=== PATIENT | female | born 1995 | race Caucasian/White ===

== ENCOUNTER 2019-08-30 17:13 | Emergency (ER) | payer OTHER ==
[2019-08-30 18:11] LABS: Absolute Lymphocytes (CBC) 2.4 K/uL (0.7-4.9); Basophils % 0.3 % (0-1.3); Hematocrit 38.2 % (36.0-45.0); Lymphocytes % 21.7 % (15.3-44.8); MPV 8.6 fL (7.6-11.3); RBC Red Blood Cell Count 4.73 M/uL (3.86-4.86)
[2019-08-30] MEDS ORDERED: NA CHLORIDE 0.9% 1,000 ML ONE (18:11)
[2019-08-30 18:24] LABS: Urine Bacteria 20-50 /HPF (<20); Urine RBC <5 /HPF (NONE SEEN)
[2019-08-30 18:25] LABS: Urine Culture Reflex Order REFLEXED
[2019-08-30 18:48] LABS: BUN Blood Urea Nitrogen 8 mg/dL (7-18); Bicarbonate 23 mmol/L (21-32); Glucose Level 119 mg/dL (74-106); HCG, Quantitative 165580 mIU/mL (1-3); Potassium 3.8 mmol/L (3.5-5.1); Sodium Level 136 mmol/L (136-145)
--- NOTE | 2019-08-30 19:30 | EDPHYS ---
Physician Documentation [facility] Name: Michelle Perez Age: 23 yrs Sex: Female : 1995 Arrival Date: 08/30/2019 Time: 17:17 Bed 6 Private MD: ED Physician Delroy Chin HPI: 08/29 17:43 This 23 yrs old Female presents to ER via Ambulatory with complaints of jmm Vaginal Bleeding, + Preg <12wks. 17:43 The patient presents to the emergency department with vaginal bleeding, that is jmm moderate. The estimated gestational age is 8 weeks. This is a 23 year old female with a history of depression that presents to the ED with complaints of pelvic pain beginning a week ago with vaginal bleeding beginning yesterday. Denies fever, denies vomiting. . 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 - Social history:: Smoking status: Patient denies any tobacco usage or history of. ROS: 17:43 Constitutional: Negative for fever, chills, and weight loss, Cardiovascular: Negative jmm for chest pain, palpitations, and edema, Respiratory: Negative for shortness of breath, cough, wheezing, and pleuritic chest pain. 17:43 : Positive for vaginal bleeding. 17:43 All other systems are negative. Exam: 17:43 Constitutional: This is a well developed, well nourished patient who is awake, alert, jmm and in no acute distress. Head/Face: atraumatic. Eyes: EOMI, no conjunctival erythema appreciated ENT: Moist Mucus Membranes Neck: Trachea midline, Supple Chest/axilla: Normal chest wall appearance and motion. Cardiovascular: Regular rate and rhythm. No edema appreciated Respiratory: Normal respirations, no respiratory distress appreciated Abdomen/GI: Non distended, soft Back: Normal ROM Skin: General appearance color normal MS/ Extremity: Moves all extremities, no obvious deformities appreciated, no edema noted to the lower extremities Neuro: Awake and alert, normal gait Psych: Behavior is normal, Mood is normal, Patient is cooperative and pleasant Vital Signs: 17:34 BP 119 / 84; Pulse 104; Resp 17; Temp 97.1; Pulse Ox 100% ; Weight 81.65 kg; Height 5 7 ft. 6 in. (167.64 cm); Pain 6/10; 18:40 BP 102 / 69; Pulse 100; Resp 17 S; Pulse Ox 100% on R/A; ca1 19:37 BP 110 / 65; Pulse 98; Resp 18; Temp 97.5; Pulse Ox 100% on R/A; mg2 17:34 Body Mass Index 29.05 (81.65 kg, 167.64 cm) jl7 MDM: 17:43 Patient medically screened. [facility] 19:27 Data reviewed: vital signs, nurses notes. Counseling: I had a detailed discussion with dominik the patient and/or guardian regarding: the historical points, exam findings, and any diagnostic results supporting the discharge/admit diagnosis, lab results, radiology results, the need for outpatient follow up, to return to the emergency department if symptoms worsen or persist or if there are any questions or concerns that arise at home. Admission orders: after a detailed discussion of the patient's condition and case, the admit orders are written by me. ED course: US reveals IUP for subchorionic bleed. UA concerning for UTI. Patient is advised to perform pelvic rest and follow up with obgyn for further evaluation. Patient understood and agrees with the plan of care. . 08/29 17:44 Order name: Quantitative Hcg; Complete Time: 19:14 [facility] 08/29 17:44 Order name: Abo/rh Typing; Complete Time: 19:14 [facility] 08/29 17:44 Order name: Basic Metabolic Panel; Complete Time: 19:14 [facility] 08/29 17:44 Order name: CBC with Diff; Complete Time: 18:36 [facility] 08/29 17:45 Order name: Urine Microscopic Only; Complete Time: 18:36 [facility] 08/29 17:50 Order name: Urine Dipstick--Ancillary (enter results) [facility] 08/29 17:44 Order name: IV Saline Lock; Complete Time: 17:58 [facility] 08/29 17:50 Order name: Urine --Ancillary (enter results) [facility] 08/29 18:27 Order name: Urine Culture [facility] 08/29 19:07 Order name: Matter Eval Tm 1 [facility] 08/29 17:44 Order name: Labs collected and sent; Complete Time: 17:59 [facility] 08/29 17:44 Order name: NPO; Complete Time: 17:46 [facility] 08/29 17:44 Order name: Urine Dipstick-Ancillary (obtain specimen); Complete Time: 17:46 [facility] Administered Medications: 18:07 Drug: NS 0.9% 1000 ml Route: IV; Rate: 1 bolus; Site: right antecubital; ca1 18:59 Follow up: Response: No adverse reaction; IV Status: Completed infusion; IV Intake: jl7 1000ml Disposition: 08/30 07:26 Co-signature as Attending Physician, Delroy Chin MD. rn Disposition: 08/30/19 19:29 Discharged to Home. Impression: Threatened , Urinary tract infection, site not specified. - Condition is Stable. - Discharge Instructions: Threatened Miscarriage, and Urinary Tract Infection, Pelvic Rest. - Prescriptions for Cephalexin 500 mg Oral Capsule - take 1 capsule by ORAL route every 12 hours for 10 days; 20 capsule. - Medication Reconciliation Form, Thank You Letter, Antibiotic Education, Prescription Opioid Use form. - Follow up: Private Physician; When: 2 - 3 days; Reason: Recheck today's complaints, Continuance of care, Re-evaluation by your physician. Signatures: Dispatcher [employer] [facility] Ronnie Elizabeth PA PA Delroy Johnson MD MD rn Leal, Jahala, RN RN jl7 Lavon Hemphill RN RN mg2 Puja Dumont RN RN ca1 Corrections: (The following items were deleted from the chart) 08/29 17:59 17:44 1st Trimest Single 1st Fetus+US.RAD.BRZ ordered. [facility] 19:07 18:04 Pelvis Complete+US.RAD.BRZ ordered. [facility] 19:38 19:29 08/30/2019 19:29 Discharged to Home. Impression: Threatened ; Urinary mg2 tract infection, site not specified. Condition is Stable. Forms are Medication Reconciliation Form, Thank You Letter, Antibiotic Education, Prescription Opioid Use. Follow up: Private Physician; When: 2 - 3 days; Reason: Recheck today's complaints, Continuance of care, Re-evaluation by your physician. dominik
--- NOTE | 2019-08-30 19:30 | ER ---
Nurse's Notes [facility] Name: Michelle Perez Age: 23 yrs Sex: Female : 1995 Arrival Date: 08/30/2019 Time: 17:17 Bed 6 Private MD: Diagnosis: Threatened ;Urinary tract infection, site not specified Presentation: 08/29 17:34 Chief complaint: Patient states: lower abdominal pain x 1 week, was bilateral lower jl7 abdominal pain and now the pain is off to the left. Coronavirus screen: Proceed with normal triage. Patient denies a cough. Patient denies shortness of breath or difficulty breathing. Patient denies measured and/or subjective temperature greater than 100.4F prior to today's visit. Patient denies travel on a cruise ship or to a country the [facility] currently lists as an affected area. Patient denies contact with known and/or suspected case of COVID-19. Ebola Screen: No symptoms or risks identified at this time. Initial Sepsis Screen: Does the patient meet any 2 criteria? No. Patient's initial sepsis screen is negative. Does the patient have a suspected source of infection? No. Patient's initial sepsis screen is negative. Risk Assessment: Do you want to hurt yourself or someone else? Patient reports no desire to harm self or others. Onset of symptoms was August 23, 2019. Care prior to arrival: None. 17:34 Method Of Arrival: Ambulatory [facility] 17:34 Acuity: NAVDEEP 3 jl7 Triage Assessment: 17:36 General: Appears in no apparent distress. uncomfortable, Behavior is calm, cooperative, jl7 appropriate for age. Pain: Complains of pain in left lower quadrant Pain currently is 6 out of 10 on a pain scale. Neuro: Level of Consciousness is awake, alert, obeys commands, Oriented to person, place, time, situation. Cardiovascular: Patient's skin is warm and dry. Respiratory: Airway is patent Respiratory effort is even, unlabored, Respiratory pattern is regular, symmetrical. GI: Abdomen is round non-distended. : Reports vaginal bleeding that is brown. Derm: Skin is pink, warm \T\ dry. 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 - Social history:: Smoking status: Patient denies any tobacco usage or history of. Screenin:40 Abuse screen: Denies threats or abuse. Denies injuries from another. Nutritional ca1 screening: No deficits noted. Tuberculosis screening: No symptoms or risk factors identified. Fall Risk IV access (20 points). Assessment: 17:45 General: See triage assessment. jl7 18:38 Reassessment: US at the bedside. ca1 18:39 Reassessment: Patient appears in no apparent distress at this time. Patient and/or ca1 family updated on plan of care and expected duration. Pain level reassessed. Patient is alert, oriented x 3, equal unlabored respirations, skin warm/dry/pink. 19:37 Reassessment: Patient denies pain at this time. Patient states feeling better. mg2 Vital Signs: 17:34 BP 119 / 84; Pulse 104; Resp 17; Temp 97.1; Pulse Ox 100% ; Weight 81.65 kg; Height 5 jl7 ft. 6 in. (167.64 cm); Pain 6/10; 18:40 BP 102 / 69; Pulse 100; Resp 17 S; Pulse Ox 100% on R/A; ca1 19:37 BP 110 / 65; Pulse 98; Resp 18; Temp 97.5; Pulse Ox 100% on R/A; mg2 17:34 Body Mass Index 29.05 (81.65 kg, 167.64 cm) jl7 ED Course: 17:17 Patient arrived in ED. ag5 17:23 Ronda Lara, ROBERT is Primary Nurse. jl7 17:24 Ronnie Elizabeth PA is PHCP. [facility] 17:24 Delroy Chin MD is Attending Physician. [facility] 17:36 Triage completed. jl7 17:36 Patient maintains SpO2 saturation greater than 95% on room air. jp3 17:36 Patient has correct armband on for positive identification. Bed in low position. Call jp3 light in reach. Side rails up X 1. Warm blanket given. Verbal reassurance given. Pulse ox on. NIBP on. 17:36 Arm band placed on right wrist. jl7 17:45 Urine collected: clean catch specimen, clear, maryann colored. jp3 17:58 Initial lab(s) drawn, by me, sent to lab. Inserted saline lock: 20 gauge in right jp3 antecubital area, using aseptic technique. Blood collected. 18:32 Urine Culture Sent. jp3 19:04 Ultrasound completed. Patient tolerated well. Notified [employer] CLERK/PA . sg3 19:08 Matter Eval Tm 1 In Process Unspecified. EDMS 19:37 No provider procedures requiring assistance completed. IV discontinued, intact, mg2 bleeding controlled, No redness/swelling at site. Pressure dressing applied. Administered Medications: 18:07 Drug: NS 0.9% 1000 ml Route: IV; Rate: 1 bolus; Site: right antecubital; ca1 18:59 Follow up: Response: No adverse reaction; IV Status: Completed infusion; IV Intake: jl7 1000ml Intake: 18:59 IV: 1000ml; Total: 1000ml. jl7 Outcome: 19:29 Discharge ordered by MD. emmanuelle 19:37 Discharged to home ambulatory. mg2 19:37 Condition: good 19:37 Discharge instructions given to patient, Instructed on discharge instructions, follow up and referral plans. medication usage, Demonstrated understanding of instructions, follow-up care, medications, Prescriptions given X 1. 19:38 Patient left the ED. mg2 Signatures: Dispatcher [employer] EDMS Ronnie Elizabeth PA PA jmm Leal, Jahala, RN RN jl7 Rebecca Carroll 3 Lavon Hemphill RN RN mg2 Jose Palacios jp3 Puja Dumont RN RN ca1 Alan Silverman ag5
[2019-08-30 19:49] VITALS: O2SAT 100
[2019-08-30 19:52] VITALS: BP 110/65; TEMP 97.5
--- NOTE | 2019-08-30 20:17 | RAD REPORT ---
EXAM DESCRIPTION: US - Matter Eval Tm 1 - 08/30/2019 7:07 pm CLINICAL HISTORY: , vaginal bleeding. Preliminary findings provided at the time of the study. COMPARISON: None. FINDINGS: A single intrauterine gestation is identified. Gestational sac has a normal appearance. He art rate is 157 bpm. An 18 millimeter subchorionic hemorrhage is seen along the inferior margin. This is not significant at this current size. [place]-rump length measurement corresponds to a 7 W 4 D age. SHEILA is 04/13/2020. No left ovarian or adnexal abnormality. Right ovary was obscured by bowel gas. No right adnexal mass. No blood or fluid in the cul de sac. IMPRESSION: Single 7 W 4 D intrauterine gestation. SHEILA is 04/13/2020. Small 18 mm subchorionic hemorrhage along the inferior margin.
[2019-08-30 21:26] LABS: Urine Blood 3+ (NEG); Urine Glucose NEGATIVE (NEG); Urine Protein TRACE (NEG); Urine Specific Gravity >1.030 (1.005-1.030); Urine pH 5.5 (5.0-7.0)
== END 2019-08-30 19:38 | disposition home or self-care (01) ==
LOC: ER 17:13
DX: O20.0 Threatened abortion (principal); O23.41 Unspecified infection of urinary tract in pregnancy, first trimester; O99.341 Other mental disorders complicating pregnancy, first trimester; Z3A.08 8 weeks gestation of pregnancy
CPT/HCPCS: 87088; 85025; 87086; 80048; 36415; 86900; 81025; 86901; 84702; 76801; J7030; 81003; 81015; 96360; 99284

== ENCOUNTER 2020-07-24 11:06 | Emergency (ER) | payer OTHER ==
[2020-07-24] MEDS ORDERED: AZITHROMYCIN 250 MG TAB ONE (14:06)
[2020-07-24] MEDS ORDERED: dexAMETHasone 10 MG/ML VIAL ONE (14:06)
[2020-07-24] MEDS ORDERED: ASPIRIN EC 325 MG TABLET PO ONE (14:07)
[2020-07-24] MEDS ORDERED: ALBUTEROL INHALER 60 PUFF/8 GM IH ONE (14:07)
[2020-07-24] MEDS ORDERED: FAMOTIDINE 20 MG TAB ONE (14:07)
--- NOTE | 2020-07-24 14:17 | ER ---
Nurse's Notes [facility] Name: Michelle Perez Age: 24 yrs Sex: Female : 1995 Arrival Date: 07/24/2020 Time: 11:10 Bed 23 Private MD: Diagnosis: Other viral pneumonia-covid;Cough Presentation: 07/24 11:16 Chief complaint: Patient states: Cough, SOB, chest pain with coughing for 10 days. ll1 Covid positive last week at [facility]. No fevers. Coronavirus screen: Client denies travel out of the [place] in the last 14 days. congestion, cough unrelated to allergies, difficulty breathing, fatigue, headache, muscle pain, nausea, runny nose, shaking with chills, shortness of breath, sore throat, loss of taste or smell, Client presents with at least one sign or symptom that may indicate coronavirus-19. Standard/surgical mask placed on the client. Client reports previous positive COVID test result. Ebola Screen: Patient denies travel to an Ebola-affected area in the 21 days before illness onset. Initial Sepsis Screen: Does the patient meet any 2 criteria? No. Patient's initial sepsis screen is negative. Does the patient have a suspected source of infection? Yes: Productive cough/pneumonia. Risk Assessment: Do you want to hurt yourself or someone else? Patient reports no desire to harm self or others. Onset of symptoms was July 14, 2020. 11:16 Method Of Arrival: Ambulatory 1 11:16 Acuity: NAVDEEP 4 ll1 Historical: - Allergies: 11:16 No Known Allergies; ll1 - PMHx: 11:16 Depression; ll1 - PSHx: 11:16 Tonsillectomy; ll1 - Immunization history:: Flu vaccine is not up to date. - Social history:: Smoking status: Patient denies any tobacco usage or history of. Screenin:22 Abuse screen: Denies threats or abuse. Denies injuries from another. Nutritional ph screening: No deficits noted. Tuberculosis screening: No symptoms or risk factors identified. Fall Risk None identified. Assessment: 14:21 General: Appears in no apparent distress. comfortable, slender, well groomed, Behavior ph is calm, cooperative, appropriate for age. Pain: Complains of pain in back and chest. Neuro: Level of Consciousness is awake, alert, obeys commands, Oriented to person, place, time, situation. Cardiovascular: Capillary refill < 3 seconds in bilateral fingers Patient's skin is warm and dry. Respiratory: Reports shortness of breath at rest cough that is Airway is patent Respiratory effort is even, unlabored, Respiratory pattern is regular, symmetrical. GI: Abdomen is non-distended, Reports nausea, Patient currently denies abdominal pain. Derm: Skin is intact, is healthy with good turgor, Skin is pink, warm \T\ dry. Musculoskeletal: Circulation, motion, and sensation intact. Range of motion: intact in all extremities. Vital Signs: 11:16 BP 126 / 81; Pulse 85; Resp 17; Temp 98.3; Pulse Ox 97% ; Weight 83.91 kg; Height 5 ft. ll1 6 in. (167.64 cm); Pain 6/10; 14:23 BP 118 / 78; Pulse 79; Resp 20; Temp 98.0; Pulse Ox 98% on R/A; ph 11:16 Body Mass Index 29.86 (83.91 kg, 167.64 cm) ll1 ED Course: 11:10 Patient arrived in ED. mr 11:16 Arm band placed on. ll1 11:19 Triage completed. ll1 12:49 Vera Grider, RN is Primary Nurse. ph 12:52 Willy Marquez MD is Attending Physician. dilia 13:49 Chest Pa And Lat (2 Views) XRAY In Process Unspecified. EDMS 14:16 Fernando Joy MD is Referral Physician. dilia 14:22 Patient has correct armband on for positive identification. Bed in low position. Call ph light in reach. Side rails up X 1. Pulse ox on. NIBP on. 14:22 No provider procedures requiring assistance completed. Patient did not have IV access ph during this emergency room visit. Administered Medications: 14:00 Drug: Pepcid 20 mg Route: PO; ph 14:15 Follow up: Response: No adverse reaction ph 14:00 Drug: Decadron 10 mg Route: IM; Site: right deltoid; ph 14:15 Follow up: Response: No adverse reaction ph 14:00 Drug: Zithromax (azithromycin) 500 mg Route: PO; ph 14:15 Follow up: Response: No adverse reaction ph 14:00 Drug: Aspirin 325 mg Route: PO; ph 14:15 Follow up: Response: No adverse reaction ph 14:00 Drug: Albuterol HFA Inhaler 4 puffs Route: Inhalation; ph 14:15 Follow up: Response: No adverse reaction ph Outcome: 14:16 Discharge ordered by . dilia 14:23 Discharged to home ambulatory. ph 14:23 Condition: good 14:23 Discharge instructions given to patient, Instructed on discharge instructions, follow up and referral plans. medication usage, Demonstrated understanding of instructions, follow-up care, medications, Prescriptions given X 5 14:37 Patient left the ED. dm5 Signatures: Dispatcher [employer] EDMS Sandra Mckee RN RN dm5 Willy Marquez MD MD cha Rivera, Vera Carlos RN RN Denis Herndon RN RN 1
--- NOTE | 2020-07-24 14:19 | EDPHYS ---
Physician Documentation [facility] Name: Michelle Perez Age: 24 yrs Sex: Female : 1995 Arrival Date: 07/24/2020 Time: 11:10 Bed 23 Private MD: ED Physician Willy Marquez HPI: 07/24 13:30 This 24 yrs old Female presents to ER via Ambulatory with complaints of Cough dilia - covid +. 13:30 The patient or guardian reports cough, difficulty breathing, flu symptoms, arthralgias, dilia low-grade fever, myalgias, covid 19 positive. Onset: The symptoms/episode began/occurred 9 day(s) ago. Severity of symptoms: At their worst the symptoms were mild, in the emergency department the symptoms are unchanged. Associated signs and symptoms: Pertinent positives: chest pain, sore throat. The patient has experienced a previous episode, last week. Historical: - Allergies: 11:16 No Known Allergies; ll1 - PMHx: 11:16 Depression; ll1 - PSHx: 11:16 Tonsillectomy; ll1 - Immunization history:: Flu vaccine is not up to date. - Social history:: Smoking status: Patient denies any tobacco usage or history of. ROS: 13:30 Constitutional: Negative for fever, chills, and weight loss, Eyes: Negative for injury, dilia pain, redness, and discharge, ENT: Negative for injury, pain, and discharge, Neck: Negative for injury, pain, and swelling, Cardiovascular: Negative for chest pain, palpitations, and edema, Respiratory: Negative for shortness of breath, cough, wheezing, and pleuritic chest pain, Abdomen/GI: Negative for abdominal pain, nausea, vomiting, diarrhea, and constipation, Back: Negative for injury and pain, : Negative for injury, bleeding, discharge, and swelling, MS/Extremity: Negative for injury and deformity, Skin: Negative for injury, rash, and discoloration, Neuro: Negative for headache, weakness, numbness, tingling, and seizure, Psych: Negative for depression, anxiety, suicide ideation, homicidal ideation, and hallucinations, Allergy/Immunology: Negative for hives, rash, and allergies, Endocrine: Negative for neck swelling, polydipsia, polyuria, polyphagia, and marked weight changes, Hematologic/Lymphatic: Negative for swollen nodes, abnormal bleeding, and unusual bruising. 13:30 MS/extremity: Negative for acute changes. Exam: 13:30 Constitutional: This is a well developed, well nourished patient who is awake, alert, dilia and in no acute distress. Head/Face: Normocephalic, atraumatic. Eyes: Pupils equal round and reactive to light, extra-ocular motions intact. Lids and lashes normal. Conjunctiva and sclera are non-icteric and not injected. Cornea within normal limits. Periorbital areas with no swelling, redness, or edema. ENT: Nares patent. No nasal discharge, no septal abnormalities noted. Tympanic membranes are normal and external auditory canals are clear. Oropharynx with no redness, swelling, or masses, exudates, or evidence of obstruction, uvula midline. Mucous membranes moist. Neck: Trachea midline, no thyromegaly or masses palpated, and no cervical lymphadenopathy. Supple, full range of motion without nuchal rigidity, or vertebral point tenderness. No Meningismus. Chest/axilla: Normal chest wall appearance and motion. Nontender with no deformity. No lesions are appreciated. Cardiovascular: Regular rate and rhythm with a normal S1 and S2. No gallops, murmurs, or rubs. Normal PMI, no JVD. No pulse deficits. Respiratory: Lungs have equal breath sounds bilaterally, clear to auscultation and percussion. No rales, rhonchi or wheezes noted. No increased work of breathing, no retractions or nasal flaring. Abdomen/GI: Soft, non-tender, with normal bowel sounds. No distension or tympany. No guarding or rebound. No evidence of tenderness throughout. Back: No spinal tenderness. No costovertebral tenderness. Full range of motion. Skin: Warm, dry with normal turgor. Normal color with no rashes, no lesions, and no evidence of cellulitis. MS/ Extremity: Pulses equal, no cyanosis. Neurovascular intact. Full, normal range of motion. Neuro: Awake and alert, GCS 15, oriented to person, place, time, and situation. Cranial nerves II-XII grossly intact. Motor strength 5/5 in all extremities. Sensory grossly intact. Cerebellar exam normal. Normal gait. Psych: Awake, alert, with orientation to person, place and time. Behavior, mood, and affect are within normal limits. 13:30 Musculoskeletal/extremity: DVT Exam: No signs of deep vein thrombosis. no pain, no swelling, no tenderness, negative Homans' sign noted on exam, no appreciated bluish discoloration, no erythema, no increased warmth. Vital Signs: 11:16 BP 126 / 81; Pulse 85; Resp 17; Temp 98.3; Pulse Ox 97% ; Weight 83.91 kg; Height 5 ft. ll1 6 in. (167.64 cm); Pain 6/10; 14:23 BP 118 / 78; Pulse 79; Resp 20; Temp 98.0; Pulse Ox 98% on R/A; ph 11:16 Body Mass Index 29.86 (83.91 kg, 167.64 cm) ll1 MDM: 12:52 Patient medically screened. [facility] 13:36 Differential Diagnosis: Bronchitis Influenza Sinusitis Pneumonia. Data reviewed: vital dilia signs, nurses notes, old medical records. Data interpreted: compliance monitor: rate is 85 beats/min, rhythm is regular, Pulse oximetry: on room air is 97 %. Test interpretation: by ED physician or midlevel provider: plain radiologic studies. Counseling: I had a detailed discussion with the patient and/or guardian regarding: the historical points, exam findings, and any diagnostic results supporting the discharge/admit diagnosis, lab results, radiology results, the need for outpatient follow up. 07/24 13:27 Order name: Chest Pa And Lat (2 Views) SINDHU dobbs Administered Medications: 14:00 Drug: Pepcid 20 mg Route: PO; ph 14:15 Follow up: Response: No adverse reaction ph 14:00 Drug: Decadron 10 mg Route: IM; Site: right deltoid; ph 14:15 Follow up: Response: No adverse reaction ph 14:00 Drug: Zithromax (azithromycin) 500 mg Route: PO; ph 14:15 Follow up: Response: No adverse reaction ph 14:00 Drug: Aspirin 325 mg Route: PO; ph 14:15 Follow up: Response: No adverse reaction ph 14:00 Drug: Albuterol HFA Inhaler 4 puffs Route: Inhalation; ph 14:15 Follow up: Response: No adverse reaction ph Disposition: 07/24/20 14:16 Discharged to Home. Impression: Other viral pneumonia - covid, Cough. - Condition is Stable. - Discharge Instructions: Community-Acquired Pneumonia, Adult, Cool Mist Vaporizer, Community-Acquired Pneumonia, Adult, [id number], Cough, Adult, Rdzy-xn-Olrs, Aspirin and Your Heart, Cough, Adult, COVID-19. - Prescriptions for dexamethasone 2 mg Oral tablet - take 1 tablet by ORAL route 3 times per day; 15 tablet. Pepcid 20 mg Oral Tablet - take 1 tablet by ORAL route every 12 hours for 10 days; 20 tablet. Albuterol Sulfate 90 mcg/actuation - inhale 1-2 puff by INHALATION route every 4-6 hours; 1 Inhaler. Zithromax 500 mg Oral Tablet - take 1 tablet by ORAL route once daily for 4 days; 4 tablet. ivermectin 3 mg Oral tablet - take 4 tablet by ORAL route once daily x1 dose day #1 and day #3.; 8 tablet. - Medication Reconciliation Form, Thank You Letter, Antibiotic Education, Prescription Opioid Use form. - Follow up: Private Physician; When: 2 - 3 days; Reason: Recheck today's complaints, Continuance of care, Re-evaluation by your physician. Follow up: Fernando Joy; When: 2 - 3 days; Reason: Recheck today's complaints, Continuance of care, Re-evaluation by your physician. - Problem is new. - Symptoms have improved. Signatures: Dispatcher [employer] Sandra Crain, RN RN dm5 Willy Marquez MD MD cha Hall, Patricia, RN RN Denis Medellin RN RN ll1 Corrections: (The following items were deleted from the chart) 14:37 14:16 07/24/2020 14:16 Discharged to Home. Impression: Other viral pneumonia - covid; dm5 Cough. Condition is Stable. Discharge Instructions: Community-Acquired Pneumonia, Adult, Cool Mist Vaporizer, Community-Acquired Pneumonia, Adult, Ehjl-jq-Zspe, Cough, Adult, Ezdq-vr-Vmml, Aspirin and Your Heart, Cough, Adult, COVID-19. Prescriptions for dexamethasone 2 mg Oral tablet - take 1 tablet by ORAL route 3 times per day; 15 tablet, Pepcid 20 mg Oral Tablet - take 1 tablet by ORAL route every 12 hours for 10 days; 20 tablet, Albuterol Sulfate 90 mcg/actuation - inhale 1-2 puff by INHALATION route every 4-6 hours; 1 Inhaler, Zithromax 500 mg Oral Tablet - take 1 tablet by ORAL route once daily for 4 days; 4 tablet, ivermectin 3 mg Oral tablet - take 4 tablet by ORAL route once daily x1 dose day #1 and day #3.; 8 tablet. and Forms are Medication Reconciliation Form, Thank You Letter, Antibiotic Education, Prescription Opioid Use. Follow up: Private Physician; When: 2 - 3 days; Reason: Recheck today's complaints, Continuance of care, Re-evaluation by your physician. Follow up: Fernando Joy; When: 2 - 3 days; Reason: Recheck today's complaints, Continuance of care, Re-evaluation by your physician. Problem is new. Symptoms have improved. dilia
--- NOTE | 2020-07-24 14:39 | RAD REPORT ---
EXAM DESCRIPTION: RAD - Chest Pa And Lat (2 Views) - 07/24/2020 1:52 pm CLINICAL HISTORY: Chest pain;Cough;DyspneaCOVID positive COMPARISON: None TECHNIQUE: Frontal and lateral views of the chest were obtained. FINDINGS: The lungs are normal volume. Mid and lower lung field patchy infiltrate present. There is right base patchy infiltrate. Pattern would be consistent with a COVID-19 pneumonia given the provide d history. No pulmonary edema. Heart size is normal and central vasculature is within normal limits. No pleural effusion or pneu mothorax seen. No acute bony finding noted. No aortic abnormality. IMPRESSION: Mild bilateral pneumonia findings most likely COVID-19 pneumonia.
[2020-07-25 12:30] VITALS: BP 118/78; TEMP 98; O2SAT 98
== END 2020-07-24 14:37 | disposition home or self-care (01) ==
LOC: ER 11:06
DX: U07.1 COVID-19 (principal); J12.82 Pneumonia due to coronavirus disease 2019
CPT/HCPCS: 71046; J1100; 96372; 99284

== ENCOUNTER 2020-07-28 16:18 | Emergency (ER) | payer OTHER ==
[2020-07-28 17:43] LABS: Absolute Lymphocytes (CBC) 1.7 K/uL (0.7-4.9); Basophils % 0.2 % (0-1.3); Hematocrit 36.7 % (36.0-45.0); Lymphocytes % 15.8 % (15.3-44.8); MPV 8.7 fL (7.6-11.3); RBC Red Blood Cell Count 4.85 M/uL (3.86-4.86)
[2020-07-28 18:29] LABS: Urine Blood NEGATIVE (NEG); Urine Glucose NEGATIVE (NEG); Urine Protein NEGATIVE (NEG); Urine Specific Gravity >1.030 (1.005-1.030)
[2020-07-28 19:30] LABS: Alkaline Phosphatase ND U/L (45-117)
[2020-07-28 19:35] LABS: ALT/SGPT 27 U/L (12-78); AST/SGOT 11 U/L (15-37); Albumin 3.7 g/dL (3.4-5.0); BUN Blood Urea Nitrogen 12 mg/dL (7-18); Bicarbonate 26 mmol/L (21-32); Bilirubin Direct < 0.1 mg/dL (0-0.2); Bilirubin Total 0.2 mg/dL (0.2-1.0); Glucose Level 108 mg/dL (74-106); Lipase 160 U/L (73-393); Potassium 4.4 mmol/L (3.5-5.1); Protein, Total 7.7 g/dL (6.4-8.2); Sodium Level 140 mmol/L (136-145)
--- NOTE | 2020-07-28 20:23 | ER ---
Nurse's Notes [facility] Name: Michelle Perez Age: 24 yrs Sex: Female : 1995 Arrival Date: 07/28/2020 Time: 16:20 Bed 13 Private MD: Diagnosis: Coronavirus infection, unspecified Presentation: 07/28 16:47 Chief complaint: Patient states: Abdominal pain, more in the middle x 2 - 3 days. ca1 Reports nausea and diarrhea. Covid+ 07/16/2020. Coronavirus screen: diarrhea, nausea, Client presents with at least one sign or symptom that may indicate coronavirus-19. Standard/surgical mask placed on the client. Provider contacted for isolation considerations. Client reports previous positive COVID test result. Date of collection: July 16, 2020. Ebola Screen: Patient negative for fever greater than or equal to 101.5 degrees Fahrenheit, and additional compatible Ebola Virus Disease symptoms Patient denies exposure to infectious person. Patient denies travel to an Ebola-affected area in the 21 days before illness onset. No symptoms or risks identified at this time. Initial Sepsis Screen: Does the patient meet any 2 criteria? No. Patient's initial sepsis screen is negative. Does the patient have a suspected source of infection? No. Patient's initial sepsis screen is negative. Risk Assessment: Do you want to hurt yourself or someone else? Patient reports no desire to harm self or others. Onset of symptoms was July 28, 2020. 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 - Social history:: Smoking status: Patient denies any tobacco usage or history of. Screenin:43 Abuse screen: Denies threats or abuse. Denies injuries from another. Nutritional jl7 screening: No deficits noted. Tuberculosis screening: No symptoms or risk factors identified. Fall Risk IV access (20 points). Total Garcia Fall Scale indicates No Risk (0-24 pts). Assessment: 17:43 General: Appears in no apparent distress. uncomfortable, Behavior is calm, cooperative, jl7 appropriate for age. Pain: Complains of pain in right lower quadrant and left lower quadrant Pain currently is 6 out of 10 on a pain scale. Quality of pain is described as stabbing. Neuro: Level of Consciousness is awake, alert, obeys commands, Oriented to person, place, time, situation. Cardiovascular: Patient's skin is warm and dry. Respiratory: Airway is patent Respiratory effort is even, unlabored, Respiratory pattern is regular, symmetrical. GI: Abdomen is non-distended, Reports lower abdominal pain, diarrhea, nausea. Derm: Skin is pink, warm \T\ dry. 19:40 Reassessment: Patient appears in no apparent distress at this time. Patient and/or mg2 family updated on plan of care and expected duration. Pain level reassessed. Patient is alert, oriented x 3, equal unlabored respirations, skin warm/dry/pink. Vital Signs: 16:47 BP 119 / 81; Pulse 77; Resp 16 S; Temp 97.1(TE); Pulse Ox 100% on R/A; Weight 83.91 kg ca1 (R); Height 5 ft. 6 in. (167.64 cm) (R); Pain 6/10; 17:43 BP 102 / 76; Pulse 72; Resp 17; Pulse Ox 100% ; Pain 6/10; jl7 19:40 BP 107 / 84; Pulse 70; Resp 18; Pulse Ox 100% on R/A; mg2 16:47 Body Mass Index 29.86 (83.91 kg, 167.64 cm) ca1 ED Course: 16:20 Patient arrived in ED. ds1 16:50 Triage completed. ca1 16:50 Arm band placed on right wrist. ca1 17:03 [facility]C [facility] kb 17:03 Nelson Mendoza MD is Attending Physician. kb 17:04 Ronda Lara RN is Primary Nurse. jl7 17:20 Missed attempt(s): 20 gauge in left antecubital area. Bleeding controlled, band aid jl7 applied, catheter tip intact. 17:43 Patient has correct armband on for positive identification. Bed in low position. Call jl7 light in reach. Side rails up X 1. Pulse ox on. NIBP on. Warm blanket given. 17:43 Initial lab(s) drawn, by me, sent to lab. Inserted saline lock: 20 gauge in right jl7 antecubital area, using aseptic technique. Blood collected. 20:24 Notified Nurse Practitioner and/or Physician Wheel Aligner of a critical lab result(s), dmLuis COVID pos. 20:50 No provider procedures requiring assistance completed. IV discontinued, intact, mg2 bleeding controlled, No redness/swelling at site. Pressure dressing applied. Administered Medications: No medications were administered Outcome: 20:23 Discharge ordered by . rhona 20:50 Discharged to home ambulatory. mg2 20:50 Condition: stable 20:50 Discharge instructions given to patient, Instructed on discharge instructions, follow up and referral plans. Demonstrated understanding of instructions, follow-up care. 20:51 Patient left the ED. mg2 Signatures: Ayana Iglesias, SIDING MECHANIC-C SIDING MECHANIC-Ckb Sandra Mckee, RN RN dm5 Gris Stevens ds1 Ronda Lara RN RN jl7 Lavon Hemphill RN RN mg2 Puja Dumont RN RN ca1
--- NOTE | 2020-07-28 20:24 | EDPHYS ---
Physician Documentation [facility] Name: Michelle Perez Age: 24 yrs Sex: Female : 1995 Arrival Date: 07/28/2020 Time: 16:20 Bed 13 Private MD: ED Physician Nelson Mendoza HPI: 07/28 22:25 This 24 yrs old Female presents to ER via Ambulatory with complaints of kb Abdominal Pain. 22:25 The patient presents with abdominal pain that is diffuse. Onset: The symptoms/episode kb began/occurred 3 day(s) ago. The symptoms do not radiate. Associated signs and symptoms: Pertinent positives: diarrhea, nausea. The symptoms are described as crampy. Modifying factors: The symptoms are alleviated by nothing, the symptoms are aggravated by nothing. Severity of pain: At its worst the pain was mild in the emergency department the pain is unchanged. The patient has not experienced similar symptoms in the past. The patient has not recently seen a physician. 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 - Social history:: Smoking status: Patient denies any tobacco usage or history of. ROS: 22:24 Constitutional: Negative for fever, chills, and weight loss, Cardiovascular: Negative kb for chest pain, palpitations, and edema, Respiratory: Negative for shortness of breath, cough, wheezing, and pleuritic chest pain, MS/Extremity: Negative for injury and deformity, Skin: Negative for injury, rash, and discoloration, Neuro: Negative for headache, weakness, numbness, tingling, and seizure. 22:24 Abdomen/GI: Positive for abdominal pain, nausea, diarrhea. Exam: 22:24 Constitutional: This is a well developed, well nourished patient who is awake, alert, kb and in no acute distress. Head/Face: Normocephalic, atraumatic. Chest/axilla: Normal chest wall appearance and motion. Cardiovascular: Regular rate and rhythm with a normal S1 and S2. No gallops, murmurs, or rubs. No pulse deficits. Respiratory: Respirations even and unlabored. No increased work of breathing, no retractions or nasal flaring. Skin: Warm, dry with normal turgor. Normal color. MS/ Extremity: Pulses equal, no cyanosis. Neurovascular intact. Full, normal range of motion. Neuro: Awake and alert, GCS 15, oriented to person, place, time, and situation. Moves all extremities. Normal gait. 22:24 Abdomen/GI: Inspection: abdomen appears normal, Bowel sounds: normal, in all quadrants, Palpation: soft, in all quadrants, mild abdominal tenderness, in all quadrants. Vital Signs: 16:47 BP 119 / 81; Pulse 77; Resp 16 S; Temp 97.1(TE); Pulse Ox 100% on R/A; Weight 83.91 kg ca1 (R); Height 5 ft. 6 in. (167.64 cm) (R); Pain 6/10; 17:43 BP 102 / 76; Pulse 72; Resp 17; Pulse Ox 100% ; Pain 6/10; jl7 19:40 BP 107 / 84; Pulse 70; Resp 18; Pulse Ox 100% on R/A; mg2 16:47 Body Mass Index 29.86 (83.91 kg, 167.64 cm) ca1 MDM: 17:04 Patient medically screened. kb 22:24 Data reviewed: vital signs, nurses notes. Data interpreted: Pulse oximetry: on room air kb is 100 %. Interpretation: normal. Counseling: I had a detailed discussion with the patient and/or guardian regarding: the historical points, exam findings, and any diagnostic results supporting the discharge/admit diagnosis, lab results, radiology results, the need for outpatient follow up, a family practitioner, to return to the emergency department if symptoms worsen or persist or if there are any questions or concerns that arise at home. 07/28 17:04 Order name: Basic Metabolic Panel; Complete Time: 19:47 kb 18 17:04 Order name: CBC with Diff; Complete Time: 18:03 kb 18 17:04 Order name: Hepatic Function; Complete Time: 19:47 kb 18 17:04 Order name: Lipase; Complete Time: 19:47 kb 07/28 17:44 Order name: Urine Dipstick--Ancillary (enter results); Complete Time: 18:29 em 07/28 17:44 Order name: Urine --Ancillary (enter results); Complete Time: 18:29 em 07/28 17:04 Order name: IV Saline Lock; Complete Time: 17:41 kb 07/28 17:04 Order name: Labs collected and sent; Complete Time: 17:41 kb 07/28 17:04 Order name: Urine Dipstick-Ancillary (obtain specimen); Complete Time: 17:40 kb 07/28 20:21 Order name: SARS-COV-2 RT PCR; Complete Time: 20:22 EDNE Administered Medications: No medications were administered Disposition: 07/29 19:32 Co-signature as Attending Physician, Nelson Mendoza MD I agree with the assessment and tw4 plan of care. Disposition: 07/28/20 20:23 Discharged to Home. Impression: Coronavirus infection, unspecified. - Condition is Stable. - Discharge Instructions: Viral Respiratory Infection, [id number], COVID-19. - Medication Reconciliation Form, Thank You Letter, Antibiotic Education, Prescription Opioid Use form. - Follow up: Emergency Department; When: As needed; Reason: Worsening of condition. Follow up: Private Physician; When: 2 - 3 days; Reason: Recheck today's complaints, Continuance of care, Re-evaluation by your physician. Signatures: Dispatcher [employer] [facility] Ayana Iglesias, ENVIRONMENTAL EDUCATOR-C ENVIRONMENTAL EDUCATOR-Nelson Bueno MD MD tw4 Lavon Hemphill, ROBERT RN mg2 Puja Dumont RN RN ca1 Corrections: (The following items were deleted from the chart) 07/28 18:47 18:04 CORONAVIRUS+MR.LAB.BRZ ordered. [facility] 20:51 20:23 07/28/2020 20:23 Discharged to Home. Impression: Coronavirus infection, mg2 unspecified. Condition is Stable. Forms are Medication Reconciliation Form, Thank You Letter, Antibiotic Education, Prescription Opioid Use. Follow up: Emergency Department; When: As needed; Reason: Worsening of condition. Follow up: Private Physician; When: 2 - 3 days; Reason: Recheck today's complaints, Continuance of care, Re-evaluation by your physician. kb
[2020-07-28 20:58] VITALS: TEMP 97.1; O2SAT 100
[2020-07-28 21:01] VITALS: BP 107/84
== END 2020-07-28 20:51 | disposition home or self-care (01) ==
LOC: ER 16:18
DX: U07.1 COVID-19 (principal); F32.9 Major depressive disorder, single episode, unspecified
CPT/HCPCS: 85025; 80048; 36415; 81025; 80076; 81003; 83690; 99283; U0003

== ENCOUNTER 2021-09-20 08:18 | Emergency (ER) | payer OTHER ==
[2021-09-20] MEDS ORDERED: IBUPROFEN 200 MG TAB PO ONE (08:44)
[2021-09-20] MEDS ORDERED: IBUPROFEN 400 MG TAB ONE (08:44)
--- NOTE | 2021-09-20 11:53 | EDPHYS ---
[facility] Name: Michelle Perez Age: 25 yrs Sex: Female : 1995 Arrival Date: 09/20/2021 Time: 08:20 Bed 15 Private MD: ED Physician Melo Toro HPI: 09/20 08:34 This 25 yrs old Female presents to ER via Ambulatory with complaints of Cough, Body jmm Aches. 08:34 The patient or guardian reports cough, described as mild. Onset: The symptoms/episode jmm began/occurred gradually, 1 day(s) ago. Modifying factors: The symptoms are alleviated by nothing, the symptoms are aggravated by nothing. Associated signs and symptoms: Pertinent positives: diarrhea, fever, sore throat. This is a 25 year old female with a history of depression that presents to the ED with complaints of cough, congestion, sore throat, fever beginning last night. Denies vomiting but has had a few episodes of diarrhea. . 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 - Social history:: Smoking status: . ROS: 08:34 Constitutional: Positive for body aches, chills, fatigue, fever. jmm 08:34 ENT: Positive for sore throat. 08:34 Respiratory: Positive for cough. 08:34 All other systems are negative. Exam: 08:34 Constitutional: This is a well developed, well nourished patient who is awake, alert, jmm and in no acute distress. Head/Face: atraumatic. Eyes: EOMI, no conjunctival erythema appreciated 08:34 Neck: Trachea midline, Supple Chest/axilla: Normal chest wall appearance and motion. Cardiovascular: Regular rate and rhythm. No edema appreciated Respiratory: Normal respirations, no respiratory distress appreciated Abdomen/GI: Non distended, soft Back: Normal ROM Skin: General appearance color normal MS/ Extremity: Moves all extremities, no obvious deformities appreciated, no edema noted to the lower extremities Neuro: Awake and alert Psych: Behavior is normal, Mood is normal, Patient is cooperative and pleasant 08:34 ENT: TM's: erythema, that is moderate, bilaterally, Posterior pharynx: erythema, that is moderate. Vital Signs: 08:33 BP 111 / 82; Pulse 115; Resp 17; Temp 101.5(O); Pulse Ox 97% ; Weight 95.25 kg; Height ww 5 ft. 6 in. (167.64 cm); Pain 6/10; 09:15 BP 115 / 81; Pulse 107; Resp 18; Pulse Ox 96% on R/A; ww 10:24 BP 96 / 59; Pulse 94; Resp 18; Temp 98.5; Pulse Ox 96% on R/A; ww 08:33 Body Mass Index 33.89 (95.25 kg, 167.64 cm) ww MDM: 08:34 Patient medically screened. [facility] 09:05 Data reviewed: vital signs, nurses notes. [facility] 11:50 Counseling: I had a detailed discussion with the patient and/or guardian regarding: the [facility] historical points, exam findings, and any diagnostic results supporting the discharge/admit diagnosis, lab results, the need for outpatient follow up, to return to the emergency department if symptoms worsen or persist or if there are any questions or concerns that arise at home. ED course: Patient is alert and non toxic in appearance in the ED. No signs of resp distress. patient advised to follow up with pcp and otherwise given strict return precautions. patient understood and agrees with the plan of care. . 09/20 08:35 Order name: Influenza Screen (a \\T\\ B); Complete Time: 11:57 [facility] 09/20 08:35 Order name: SARS-COV-2 RT PCR (Document "Date of Onset" if Symptomatic); Complete Time: [facility] 10:07 09/20 08:35 Order name: Strep; Complete Time: 09:38 [facility] 09/20 09:38 Order name: Throat Culture EDMS Administered Medications: 08:50 Drug: Ibuprofen 600 mg Route: PO; ww Disposition: 13:11 Co-signature as Attending Physician, Melo Toro DO I was immediately available on-site ms3 in the Emergency Department for consultation in the care of the patient.. Disposition Summary: 09/20/21 11:52 Discharge Ordered Location: Home [facility] Condition: Stable [facility] Diagnosis - Influenza [facility] Followup: [facility] - With: Private Physician - When: 2 - 3 days - Reason: Recheck today's complaints, Continuance of care, Re-evaluation by your physician Discharge Instructions: - Discharge Summary Sheet jmm - Influenza, Adult [facility] Forms: - Medication Reconciliation Form [facility] - Thank You Letter dominik - Antibiotic Education emmanuelle - Prescription Opioid Use [facility] Prescriptions: - promethazine-DM - take 10 milliliter by ORAL route every 4-6 hours; 200 milliliter; Refills: 0, [facility] Product Selection Permitted - Tamiflu 75 mg Oral Capsule - take 1 tablet by ORAL route every 12 hours for 5 days; 10 tablet; Refills: 0, [facility] Product Selection Permitted Signatures: Dispatcher [employer] Ronnie Gallardo PA PA jmm Sims, Marcus, DO DO ms3 Dena Salomon, RN RN ww
--- NOTE | 2021-09-20 11:53 | ER ---
Nurse's Notes [facility] Name: Michelle Perez Age: 25 yrs Sex: Female : 1995 Arrival Date: 09/20/2021 Time: 08:20 Bed 15 Private MD: Diagnosis: Influenza Presentation: 09/20 08:33 Chief complaint: Patient states: Dry cough, body aches, sore throat, nausea and ww vomiting that started on Saturday. Took her temperature rectally at home and it was 104.9 and took Tylenol prior to arrival. Coronavirus screen: Client denies travel out of the [place] in the last 14 days. Ebola Screen: Patient denies travel to an Ebola-affected area in the 21 days before illness onset. Initial Sepsis Screen: Does the patient meet any 2 criteria? No. Patient's initial sepsis screen is negative. Does the patient have a suspected source of infection? No. Patient's initial sepsis screen is negative. Risk Assessment: Do you want to hurt yourself or someone else? Patient reports no desire to harm self or others. Onset of symptoms was September 17, 2021. 08:33 Method Of Arrival: Ambulatory ww 08:33 Acuity: NAVDEEP 4 ww Triage Assessment: 08:35 General: Appears in no apparent distress. Behavior is cooperative. Pain: Complains of ww pain in uvula, left aspect of posterior pharynx and right aspect of posterior pharynx. EENT: Reports pain in uvula, left aspect of posterior pharynx and right aspect of posterior pharynx. Neuro: Level of Consciousness is awake, alert, obeys commands, Oriented to person, time, situation, Moves all extremities. Gait is steady, Speech is normal. Cardiovascular: Patient's skin is warm and dry. Respiratory: Reports cough that is dry, Airway is patent Respiratory effort is even, unlabored, Respiratory pattern is regular, symmetrical. : No signs and/or symptoms were reported regarding the genitourinary system. Derm: Skin is healthy with good turgor. 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 - Social history:: Smoking status: . Screenin:37 Abuse screen: Denies threats or abuse. Denies injuries from another. Nutritional ww screening: No deficits noted. Tuberculosis screening: No symptoms or risk factors identified. Fall Risk None identified. Assessment: 08:37 Reassessment: Patient appears in no apparent distress at this time. No changes from ww previously documented assessment. Patient and/or family updated on plan of care and expected duration. Pain level reassessed. Patient is alert, oriented x 3, equal unlabored respirations, skin warm/dry/pink. see triage assessment. 09:20 Reassessment: Patient appears in no apparent distress at this time. No changes from ww previously documented assessment. Patient and/or family updated on plan of care and expected duration. Pain level reassessed. Patient is alert, oriented x 3, equal unlabored respirations, skin warm/dry/pink. 10:22 Reassessment: Patient appears in no apparent distress at this time. No changes from ww previously documented assessment. Patient and/or family updated on plan of care and expected duration. Pain level reassessed. Patient is alert, oriented x 3, equal unlabored respirations, skin warm/dry/pink. 11:35 Reassessment: Patient appears in no apparent distress at this time. No changes from ww previously documented assessment. Patient and/or family updated on plan of care and expected duration. Pain level reassessed. Patient is alert, oriented x 3, equal unlabored respirations, skin warm/dry/pink. Vital Signs: 08:33 BP 111 / 82; Pulse 115; Resp 17; Temp 101.5(O); Pulse Ox 97% ; Weight 95.25 kg; Height ww 5 ft. 6 in. (167.64 cm); Pain 6/10; 09:15 BP 115 / 81; Pulse 107; Resp 18; Pulse Ox 96% on R/A; ww 10:24 BP 96 / 59; Pulse 94; Resp 18; Temp 98.5; Pulse Ox 96% on R/A; ww 08:33 Body Mass Index 33.89 (95.25 kg, 167.64 cm) ED Course: 08:20 Patient arrived in ED. ds1 08:23 Ronnie Elizabeth PA is PHCP. [facility] 08:23 Melo Toro DO is Attending Physician. [facility] 08:35 Triage completed. ww 08:35 Arm band placed on. ww 08:37 Patient has correct armband on for positive identification. Bed in low position. Call ww light in reach. Side rails up X 1. Adult w/ patient. 08:51 Dena Salomon, RN is Primary Nurse. ww 12:09 No provider procedures requiring assistance completed. Patient did not have IV access ww during this emergency room visit. Administered Medications: 08:50 Drug: Ibuprofen 600 mg Route: PO; ww Outcome: 11:52 Discharge ordered by . dominik 12: Discharged to home ambulatory, with family. ww 12: Condition: stable 12:09 Discharge instructions given to patient, family, Instructed on discharge instructions, follow up and referral plans. medication usage, safety practices, Demonstrated understanding of instructions, follow-up care, medications, Prescriptions given X 2. 12:11 Patient left the ED. ww Signatures: Ronnie Elizabeth PA PA jmm Sanford, Demi ds1 Dena Salomon, RN RN ww
[2021-09-20 12:18] VITALS: O2SAT 96
[2021-09-20 12:19] VITALS: BP 96/59; TEMP 98.5
== END 2021-09-20 12:11 | disposition home or self-care (01) ==
LOC: ER 08:18
DX: J11.1 Influenza due to unidentified influenza virus with other respiratory manifestations (principal); Z20.822 Contact with and (suspected) exposure to COVID-19; R19.7 Diarrhea, unspecified
CPT/HCPCS: 87070; 87081; 87804 ×2; 99283; U0003

== ENCOUNTER 2021-12-02 17:30 | Emergency (ER) | payer OTHER ==
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
[2021-12-02 21:05] VITALS: BP 124/67; O2SAT 100
== END 2021-12-02 21:01 | disposition home or self-care (01) ==
LOC: ER 17:30
DX: S30.1XXA Contusion of abdominal wall, initial encounter (principal); S63.681A Other sprain of right thumb, initial encounter; F32.A Depression, unspecified
CPT/HCPCS: 74177; 73130; 99283; Q9967

== ENCOUNTER 2023-08-15 14:44 | Emergency (ER) | payer OTHER ==
[2023-08-15 15:24] LABS: SARS-CoV-2 Antigen CONTROL BLUE LINE VIS/BG OK; SARS-CoV-2 Antigen Rapid Res Negative (Negative)
--- NOTE | 2023-08-15 16:05 | ER ---
Nurse's Notes [facility] Name: Michelle Perez Age: 27 yrs Sex: Female : 1995 Arrival Date: 08/15/2023 Time: 14:44 Bed 11 Private MD: Diagnosis: Viral illness Presentation: 08/14 14:59 Chief complaint: Fatigue, headache, chills, sore throat, bilateral ear pain, body hb aches, nausea, sinus congestion and drainage x 2 days. Vomited yesterday. Coronavirus screen: Client presents with at least one sign or symptom that may indicate coronavirus-19. Provider contacted for isolation considerations. Ebola Screen: No symptoms or risks identified at this time. Initial Sepsis Screen: Does the patient meet any 2 criteria? Yes Does the patient have a suspected source of infection? No. Patient's initial sepsis screen is negative. Risk Assessment: Do you want to hurt yourself or someone else? Patient reports no desire to harm self or others. Onset of symptoms was August 14, 2023. 14:59 Method Of Arrival: Ambulatory 14:59 Acuity: NAVDEEP 4 hb Triage Assessment: 15:01 General: Appears in no apparent distress. Behavior is calm, cooperative. Pain: Pain hb currently is 5 out of 10 on a pain scale. EENT: Reports bilateral ear pain, sinus congestion. Neuro: Level of Consciousness is awake, alert, obeys commands, Oriented to person, place, time, situation. Cardiovascular: Patient's skin is warm and dry. Respiratory: Reports cough that is non-productive, Respiratory effort is even, unlabored, Respiratory pattern is regular, symmetrical. GI: Reports nausea. Musculoskeletal: Reports body aches. Historical: - Allergies: 15:01 No Known Allergies; hb - PMHx: 15:01 Anxiety; Depression; hb - PSHx: 15:01 Adenoid excision; Tonsillectomy; Ear Tubes; Tonsillectomy; Adenoid excision; hb - Immunization history:: Adult Immunizations up to date. - Infectious Disease History:: Denies. - Social history:: Smoking status: Patient denies any tobacco usage or history of. - Family history:: not pertinent. - Hospitalizations: : No recent hospitalization is reported. Screenin:47 [facility] ED Fall Risk Assessment (Adult) History of falling in the last 3 months, mb9 including since admission No falls in past 3 months (0 pts) Confusion or Disorientation No (0 pts) Intoxicated or Sedated No (0 pts) Impaired Gait No (0 pts) Mobility Assist Device Used No (0 pt) Altered Elimination No (0 pt) Score/Fall Risk Level 0 - 2 = Low Risk Oriented to surroundings, Maintained a safe environment, Educated pt \T\ family on fall prevention, incl call for assistance when getting out of bed. Abuse screen: Denies threats or abuse. Nutritional screening: No deficits noted. Tuberculosis screening: No symptoms or risk factors identified. Assessment: 16:04 General: Appears in no apparent distress. Behavior is calm, cooperative. Pain: mb9 Complains of pain in neck. Neuro: Level of Consciousness is awake, alert, obeys commands, Oriented to person, place, time, situation, Appropriate for age. Cardiovascular: Patient's skin is warm and dry. Respiratory: Airway is patent Respiratory effort is even, unlabored, Respiratory pattern is regular, symmetrical. GI: Reports nausea. : No signs and/or symptoms were reported regarding the genitourinary system. EENT: No signs and/or symptoms were reported regarding the EENT system. Derm: Skin is pink, warm \T\ dry. Musculoskeletal: Range of motion: intact in all extremities, Reports body aches. Vital Signs: 14:59 BP 116 / 85; Pulse 97; Resp 16; Temp 97.3(TE); Pulse Ox 100% on R/A; Weight 83.91 kg; hb Height 5 ft. 6 in. ; Pain 5/10; 16:10 BP 121 / 87; Pulse 84; Resp 16; Pulse Ox 98% on R/A; mb9 14:59 Body Mass Index 29.86 (83.91 kg, 167.64 cm) hb 14:59 Pain Scale: Adult hb ED Course: 14:48 Patient arrived in ED. mg5 14:53 Delroy Chin MD is Attending Physician. rn 15:01 Triage completed. hb 15:03 Arm band placed on. hb 15:08 SARS RAPID Sent. mb9 15:08 Strep Sent. mb9 15:08 Flu Sent. mb9 15:45 Millie Blanco, ROBERT is Primary Nurse. mb9 15:47 Placed in gown. Bed in low position. Call light in reach. Side rails up X 1. Provided mb9 Education on: press call light if needing anything. Client placed on continuous cardiac and pulse oximetry monitoring. NIBP monitoring applied. 15:47 No provider procedures requiring assistance completed. mb9 15:47 Patient did not have IV access during this emergency room visit. mb9 Administered Medications: No medications were administered Medication: 15:47 VIS not applicable for this client. mb9 Outcome: 16:05 Discharge ordered by . rn 16:11 Discharged to home ambulatory, supriya 16:11 Condition: stable 16:11 Discharge instructions given to patient, Instructed on discharge instructions, follow up and referral plans. Demonstrated understanding of instructions, follow-up care, 16:11 Patient left the ED. mb9 Signatures: Delroy Chin MD MD rn Baxter, Heather, RN RN hb Breneman, Mary Beth RN RN Ita Blackburn mg5 Corrections: (The following items were deleted from the chart) 15:04 14:59 Chief complaint: Headache, chills, sore throat, bilateral ear pain, body aches, hb nausea, sinus congestion and drainage x 2 days. hb 15:04 14:59 BP 116 / 85; Pulse 89bpm; Resp 16bpm; Pulse Ox 100% RA; Temp 97.3F Temporal; hb 83.91 kg; Height 5 ft. 6 in.; BMI: 29.8; Pain 5/10, Adult; hb
--- NOTE | 2023-08-15 16:05 | EDPHYS ---
Physician Documentation [facility] Name: Michelle Perez Age: 27 yrs Sex: Female : 1995 Arrival Date: 08/15/2023 Time: 14:44 Bed 11 Private MD: ED Physician Delroy Chin HPI: 08/14 15:24 This 27 yrs old Female presents to ER via Ambulatory with complaints of Flu Symptoms. rn 15:25 The patient or guardian reports cough, described as mild, flu symptoms, low-grade rn fever, myalgias. Onset: The symptoms/episode began/occurred 2 day(s) ago. Severity of symptoms: At their worst the symptoms were mild, in the emergency department the symptoms are unchanged. Modifying factors: The symptoms are alleviated by nothing, the symptoms are aggravated by nothing. The patient has not experienced similar symptoms in the past. Patient reports exposed to flu over Easter now having 2 days of headache, myalgias, runny nose, cough, sore throat, generalized weakness, diarrhea, nausea.. Historical: - Allergies: 15:01 No Known Allergies; hb - PMHx: 15:01 Anxiety; Depression; hb - PSHx: 15:01 Adenoid excision; Tonsillectomy; Ear Tubes; Tonsillectomy; Adenoid excision; hb - Immunization history:: Adult Immunizations up to date. - Infectious Disease History:: Denies. - Social history:: Smoking status: Patient denies any tobacco usage or history of. - Family history:: not pertinent. - Hospitalizations: : No recent hospitalization is reported. ROS: 15:25 Constitutional: Positive for chills and subjective fever Eyes: Negative for injury, rn pain, redness, and discharge, ENT: Positive for runny nose and congestion Cardiovascular: Negative for chest pain, palpitations, and edema, Respiratory: Positive for cough, negative for shortness of breath Abdomen/GI: Positive for nausea and diarrhea. MS/Extremity: Negative for injury and deformity, Skin: Negative for injury, rash, and discoloration, Neuro: Positive for headache and generalized weakness Exam: 15:25 Constitutional: This is a well developed, well nourished patient who is awake, alert, rn and in no acute distress. Head/Face: Normocephalic, atraumatic. ENT: Mild pharyngeal erythema, no stridor. Uvula midline. Neck: Trachea midline, no masses palpated, and no cervical lymphadenopathy. Supple, full range of motion without nuchal rigidity, or vertebral point tenderness. No Meningismus. Cardiovascular: Regular rate and rhythm. No pulse deficits. Respiratory: No increased work of breathing, no retractions or nasal flaring. Skin: Warm, dry MS/ Extremity: Pulses equal, no cyanosis. Neuro: Awake and alert, GCS 15 Vital Signs: 14:59 BP 116 / 85; Pulse 97; Resp 16; Temp 97.3(TE); Pulse Ox 100% on R/A; Weight 83.91 kg; hb Height 5 ft. 6 in. ; Pain 5/10; 16:10 BP 121 / 87; Pulse 84; Resp 16; Pulse Ox 98% on R/A; mb9 14:59 Body Mass Index 29.86 (83.91 kg, 167.64 cm) hb 14:59 Pain Scale: Adult hb MDM: 14:53 Patient medically screened. rn 15:51 Differential Diagnosis: Bronchitis Influenza Upper Respiratory Infection Viral rn Syndrome. Data reviewed: vital signs, nurses notes, lab test result(s), and as a result, I will discharge patient. Counseling: I had a detailed discussion with the patient and/or guardian regarding the historical points, exam findings, and any diagnostic results supporting the discharge/admit diagnosis, lab results, the need for outpatient follow up, to return to the emergency department if symptoms worsen or persist or if there are any questions or concerns that arise at home. Special discussion: I discussed with the patient/guardian in detail that at this point there is no indication for admission to the hospital. It is understood, however, that if the symptoms persist or worsen the patient needs to return immediately for re-evaluation. 08/14 15:05 Order name: Flu; Complete Time: 15:41 rn 08/14 15:05 Order name: Strep rn 08/14 15:05 Order name: SARS RAPID; Complete Time: 15:41 rn 08/14 15:46 Order name: Throat Culture EDMS 08/14 15:06 Order name: PO challenge; Complete Time: 15:08 rn Administered Medications: No medications were administered Disposition Summary: 08/15/23 16:05 Discharge Ordered Notes: Location: Home rn Problem: new rn Symptoms: have improved rn Condition: Stable rn Diagnosis - Viral illness rn Followup: rn - With: Private Physician - When: As needed - Reason: Recheck today's complaints, Re-evaluation by your physician Discharge Instructions: - Viral Illness, Adult rn - Discharge Summary Sheet hb Forms: - Medication Reconciliation Form rn - Thank You Letter rn - 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
[2023-08-15 17:17] VITALS: BP 121/87; TEMP 97.3; O2SAT 98
== END 2023-08-15 16:11 | disposition home or self-care (01) ==
LOC: ER 14:44
DX: B34.9 Viral infection, unspecified (principal); Z11.52 Encounter for screening for COVID-19
CPT/HCPCS: 36415; 87070; 87081; 87804; 87811; 99283

== ENCOUNTER 2024-07-07 15:54 | Emergency (ER) | payer OTHER ==
[2024-07-07 16:34] LABS: Specific Gravity > 1.030 (1.005-1.030)
[2024-07-07 16:36] LABS: Specific Gravity > 1.030 (1.005-1.030); Sqamous Epithelial >50 /HPF (None Seen); Urine Bacteria <20 /HPF (<20); Urine Bilirubin NEGATIVE (Negative); Urine Blood Negative (Negative); Urine Clarity Extremely Turbid (Clear); Urine Color Yellow (Yellow); Urine Culture Reflex Order NOT NEEDED; Urine Glucose NEGATIVE (Negative); Urine Ketones NEGATIVE (Negative); Urine Microscopic Reflex YN ORDER UMIC; Urine Mucus 4+ /HPF (None Seen); Urine Nitrite NEGATIVE (Negative); Urine Protein 1+ (Negative); Urine Urobilinogen 2+ (Normal); Urine WBC <5 /HPF (<5); Urine Yeast (Budding) Trace /HPF (None Seen)
[2024-07-07 16:41] LABS: Influenza A Ag Negative; Influenza B Ag Negative; SARS-CoV-2 Antigen Rapid Res Negative (Negative)
--- NOTE | 2024-07-07 17:15 | RAD REPORT ---
EXAMINATION: ONE VIEW CHEST XR CLINICAL INDICATION: Female, 28 years old.,COUGH TECHNIQUE: Frontal chest projection is submitted. Examination is limited by patient positioning and t echnique. COMPARISON: 07/24/2020 FINDINGS: The lungs are well inflated and clear. No pneumothorax or sizable effusion. The heart is normal in s ize. Mediastinal contours are unremarkable. IMPRESSION: No acute intrathoracic abnormalities.
--- NOTE | 2024-07-07 17:45 | EDPHYS ---
Physician Documentation [facility] Name: Michelle Perez Age: 28 yrs Sex: Female : 1995 Arrival Date: 07/07/2024 Time: 15:54 Bed DX3 Private MD: ED Physician Delroy Chin HPI: 07/07 16:07 This 28 yrs old Female presents to ER via Unassigned with complaints of Flu Symptoms. kb 16:07 Pt is a 28 year old female who presents for cough, congestion, runny nose, sore throat, kb left ear pain and chills that started 3 weeks ago. States she was already seen by PCP, given amoxicillin, ear drops and tessalon perles without relief. . CADET DECK: 16:08 LMP 06/21/2024, unknown iw Historical: - Allergies: 16:08 No Known Allergies; iw - PMHx: 16:08 Anxiety; Depression; iw - PSHx: 16:08 Tonsillectomy; Adenoid excision; ear tubes; iw - Immunization history:: Adult Immunizations. - Infectious Disease History:: Denies. - Social history:: Smoking status: Patient denies any tobacco usage or history of. ROS: 16:07 Constitutional: As per HPI kb Exam: 16:07 Constitutional: This is a well developed, well nourished patient who is awake, alert, kb and in no acute distress. Head/Face: Normocephalic, atraumatic. ENT: Moist Mucous membranes Cardiovascular: Regular rate Respiratory: Respirations even and unlabored. No increased work of breathing. Talking in full sentences Skin: Warm, dry with normal turgor. Normal color. MS/ Extremity: Pulses equal, no cyanosis. Neurovascular intact. Full, normal range of motion. Neuro: Awake and alert, GCS 15, oriented to person, place, time, and situation. Vital Signs: 16:08 BP 126 / 89; Pulse 99; Resp 18; Temp 97; Pulse Ox 98% ; Weight 83.91 kg; Height 5 ft. 6 iw in. ; Pain 4/10; 16:08 Body Mass Index 29.86 (83.91 kg, 167.64 cm) iw 16:08 Pain Scale: Adult iw MDM: 15:57 Medical Screening Exam initiated kb 16:09 Differential diagnosis: flu, covid, strep, uri, pneumonia. Data reviewed: vital signs, kb nurses notes. 17:44 Counseling: I had a detailed discussion with the patient and/or guardian regarding the kb historical points, exam findings, and any diagnostic results supporting the discharge/admit diagnosis, lab results, radiology results, the need for outpatient follow up, a family practitioner, to return to the emergency department if symptoms worsen or persist or if there are any questions or concerns that arise at home. 07/07 16:04 Order name: COVID-19 Ag + Flu A+B Ag; Complete Time: 16:42 kb 07/07 16:04 Order name: Group A Streptococcus Rapid; Complete Time: 16:41 kb 07/07 16:04 Order name: Test, Urine; Complete Time: 16:41 kb 07/07 16:04 Order name: Urinalysis w/ reflexes; Complete Time: 16:41 kb 07/07 16:29 Order name: Throat Culture; Complete Time: 16:41 EDMS 07/07 16:04 Order name: Chest Single View XRAY; Complete Time: 17:31 kb Administered Medications: 17:50 Drug: Dexamethasone IM 10 mg IM once Route: IM; Site: right vastus lateralis; ll1 17:57 Follow up: Response: No adverse reaction ll1 Disposition: 07/08 07:06 Co-signature as Attending Physician, Delroy Chin MD I reviewed the patient's care rn provided by the Advanced Practice Provider and agree with the diagnosis and treatment plan. Disposition Summary: 07/07/24 17:45 Discharge Ordered Notes: Location: Home kb Condition: Stable kb Diagnosis - Cough kb Followup: kb - With: Emergency Department - When: As needed - Reason: Worsening of condition Followup: kb - With: Private Physician - When: 2 - 3 days - Reason: Recheck today's complaints, Continuance of care, Re-evaluation by your physician Discharge Instructions: - Discharge Summary Sheet kb - Cough, Adult, [id number] kb Forms: - Medication Reconciliation Form kb - Antibiotic Education kb - Prescription Opioid Use kb - Patient Portal Instructions kb - Leadership Thank You Letter kb - Work release form ll1 Signatures: Dispatcher [employer] Ayana Mcclain FNP-C FNP-Ckb Dae, Maegan, RN RN iw Chin, Delroy, MD MD rn Yanick, Lynsay, RN RN ll1
--- NOTE | 2024-07-07 17:45 | ER ---
Nurse's Notes [facility] Name: Michelle Perez Age: 28 yrs Sex: Female : 1995 Arrival Date: 07/07/2024 Time: 15:54 Bed DX3 Private MD: Diagnosis: Cough Presentation: 07/07 16:07 Chief complaint: Patient states: sore throat and stuffy/runny nose X 3 weeks , sinus iw pressure. Coronavirus screen: Client presents with at least one sign or symptom that may indicate coronavirus-19. Ebola Screen: No symptoms or risks identified at this time. Initial Sepsis Screen: Does the patient meet any 2 criteria? No. Patient's initial sepsis screen is negative. Does the patient have a suspected source of infection? No. Patient's initial sepsis screen is negative. Risk Assessment: Do you want to hurt yourself or someone else? Patient reports no desire to harm self or others. 16:07 Method Of Arrival: Ambulatory iw 16:07 Acuity: NAVDEEP 4 iw 17:56 Onset of symptoms was June 16, 2024. ll1 EKG TECH: 16:08 LMP 06/21/2024, unknown iw Historical: - Allergies: 16:08 No Known Allergies; iw - PMHx: 16:08 Anxiety; Depression; iw - PSHx: 16:08 Tonsillectomy; Adenoid excision; ear tubes; iw - Immunization history:: Adult Immunizations. - Infectious Disease History:: Denies. - Social history:: Smoking status: Patient denies any tobacco usage or history of. Screenin:51 [facility] ED Fall Risk Assessment (Adult) History of falling in the last 3 months, ll1 including since admission No falls in past 3 months (0 pts) Confusion or Disorientation No (0 pts) Intoxicated or Sedated No (0 pts) Impaired Gait No (0 pts) Mobility Assist Device Used No (0 pt) Altered Elimination No (0 pt) Score/Fall Risk Level 0 - 2 = Low Risk Maintained a safe environment, Hourly rounding (assess needs \T\ fall precautionary measures) done. Abuse screen: Denies threats or abuse. Nutritional screening: No deficits noted. Tuberculosis screening: No symptoms or risk factors identified. Assessment: 17:50 General: Appears in no apparent distress. Behavior is calm, cooperative, appropriate ll1 for age. Pain: Complains of pain in sinus Quality of pain is described as aching, pressure. Neuro: Reports headache. EENT: Reports nasal congestion nasal discharge pain when swallowing. Vital Signs: 16:08 BP 126 / 89; Pulse 99; Resp 18; Temp 97; Pulse Ox 98% ; Weight 83.91 kg; Height 5 ft. 6 iw in. ; Pain 4/10; 16:08 Body Mass Index 29.86 (83.91 kg, 167.64 cm) iw 16:08 Pain Scale: Adult ED Course: 15:56 Patient arrived in ED. im 15:57 Ayana Iglesias FNP-C [facility]. kb 15:57 Delroy Chin MD is Attending Physician. kb 16:08 Triage completed. iw 16:08 Arm band placed on. iw 16:11 COVID-19 Ag + Flu A+B Ag Sent. bc6 16:11 Group A Streptococcus Rapid Sent. bc6 16:11 COVID swab sent to lab. Flu and/or RSV swab sent to lab. Strep swab sent to lab. bc6 16:39 Chest Single View XRAY In Process Unspecified. EDMS 17:40 Patient placed in an exam room, on a stretcher. ll1 17:51 Patient has correct armband on for positive identification. Bed in low position. ll1 Provided Education on: ER procedures and process. Cardiac monitoring not applicable on this patient. 17:51 No provider procedures requiring assistance completed. Patient did not have IV access ll1 during this emergency room visit. Administered Medications: 17:50 Drug: Dexamethasone IM 10 mg IM once Route: IM; Site: right vastus lateralis; ll1 17:57 Follow up: Response: No adverse reaction ll1 Medication: 17:51 VIS not applicable for this client. ll1 Outcome: 17:45 Discharge ordered by MD. kb 17:51 Condition: stable ll1 17:56 Discharged to home ambulatory, ll1 17:56 Discharge instructions given to patient, Instructed on discharge instructions, follow up and referral plans. Demonstrated understanding of instructions, follow-up care, 17:57 Patient left the ED. ll1 Signatures: Dispatcher [employer] EDND Ayana Iglesias FNP-C FNP-Ckb Williams, Irene, RN RN Denis Herndon RN RN 1 Saniya Lewis 6 Elva Omer im
[2024-07-07] MEDS ORDERED: dexAMETHasone 10 MG/ML VIAL ONE (17:46)
[2024-07-07 18:13] VITALS: BP 126/89; TEMP 97; O2SAT 98
== END 2024-07-07 17:57 | disposition home or self-care (01) ==
LOC: ER 15:54
DX: R05.9 Cough, unspecified (principal); R07.0 Pain in throat; H92.02 Otalgia, left ear; Z11.52 Encounter for screening for COVID-19
CPT/HCPCS: 87070; 81001; 36415; 81025; 71045; 87428; J1100

== ENCOUNTER 2025-02-25 14:19 | Emergency (ER) | payer OTHER, SELFPAY ==
[2025-02-25] MEDS ORDERED: NA CHLORIDE 0.9% 1,000 ML ONE (14:49)
[2025-02-25] MEDS ORDERED: ONDANSETRON 4 MG/2 ML VIAL ONE (14:49)
[2025-02-25 14:55] LABS: Absolute Lymphocytes (CBC) 2.5 K/uL (0.7-4.9); Hematocrit 37.6 % (36.0-45.0); Hemoglobin 12.9 g/dL (12.0-15.0); MCH 29.2 pg (27.0-35.0); MCHC 34.4 g/dL (32.0-36.0); MCV 85.0 fL (80-100); MPV 8.4 fL (7.6-11.3); Nucleated RBC Absolute Count 0.0 (0-0); Nucleated Red Blood Cells % 0.0 % (0-0); RBC Red Blood Cell Count 4.42 M/uL (3.86-4.86); White Blood Count 9.30 thou/uL (4.3-10.9)
[2025-02-25 14:59] LABS: Urine Culture Reflex Order NOT NEEDED; Urine Microscopic Reflex YN ORDER UMIC; Urine WBC Clump Rare /HPF (None Seen); Urine Yeast (Budding) Trace /HPF (None Seen)
[2025-02-25 15:19] LABS: ALT/SGPT 20 U/L (13-56); Albumin 3.8 g/dL (3.4-5.0); Albumin/Globulin Ratio 1.2 (1.1-1.8); Alkaline Phosphatase 73 U/L (45-117); Anion Gap 7.1 mEq/L (5.0-15.0); BUN Blood Urea Nitrogen 10 mg/dL (7-18); Globulin 3.2 g/dL (2.3-3.5); Glucose Level 135 mg/dL (74-106); Lipase 30 U/L (13-75); Potassium 4.1 mEq/L (3.5-5.1)
[2025-02-25 15:22] LABS: AST/SGOT < 10 U/L (15-37)
[2025-02-25] MEDS ORDERED: CEFTRIAXONE 1000 MG/VIAL ONE (15:53)
[2025-02-25] MEDS ORDERED: CIPROFLOXACIN HCL 500 MG TAB ONE (15:54)
[2025-02-25] MEDS ORDERED: NA CHLORIDE 0.9% 50 ML ONE (15:54)
--- NOTE | 2025-02-25 16:07 | RAD REPORT ---
EXAMINATION: CT ABDOMEN AND PELVIS WITH CONTRAST CLINICAL INDICATION: GI BLEED TECHNIQUE: CT abdomen and pelvis was performed, after the administration of IV contrast, as per [facility] protocol. Axial, sagittal and coronal reconstructions were obtained. One or more of the following dose reduction techniques were used: Automated exposure control, adjustment of the mA and k V according to patient size, and iterative reconstruction. Unless otherwise specified, incidental findings do not require dedicated imaging follow-up. COMPARISON: No prior exam. FINDINGS: LOWER CHEST: The visualized lung bases are clear. LIVER: Normal in size and contour. No focal lesion. Grossly unremarkable gallbladder. SPLEEN: Normal size. No focal lesion. PANCREAS: No mass, ductal dilation, or leann-pancreatic fluid. ADRENALS: Normal; no mass. KIDNEYS: Normal size and contour. No hydronephrosis. GASTROINTESTINAL TRACT: No evidence of free air, significant intra-abdominal free fluid, bowel obstru ction or abscess. APPENDIX: Normal appendix. LYMPH NODES: No lymphadenopathy. MUSCULOSKELETAL: Mild multilevel spinal degenerative changes. ADDITIONAL FINDINGS: Trace pelvic free fluid. IMPRESSION: No acute or concerning abnormalities seen in the abdomen or pelvis.
--- NOTE | 2025-02-25 16:12 | ER ---
Nurse's Notes [facility] Name: Michelle Perez Age: 29 yrs Sex: Female : 1995 Arrival Date: 02/25/2025 Time: 14:19 Bed 8 Private MD: Diagnosis: GI Bleed/ Gastrointestinal hemorrhage, unspecified-lower;UTI/ Urinary tract infection, site not specified Presentation: 02/25 14:25 Chief complaint: Patient states: she has been having bleeding from her rectal area for ap3 approx one week, even when she doesn't have a bowel movement. patient reports pain to the rectal area. patient currently rates her pain as a 6/10 on the pain scale. Coronavirus screen: At this time, the client does not indicate any symptoms associated with coronavirus-19. Ebola Screen: No symptoms or risks identified at this time. Initial Sepsis Screen: Does the patient meet any 2 criteria? HR > 90 bpm. Does the patient have a suspected source of infection? No. Patient's initial sepsis screen is negative. Risk Assessment: Do you want to hurt yourself or someone else? Patient reports no desire to harm self or others. Onset of symptoms was February 18, 2025. 14:25 Method Of Arrival: Ambulatory ap3 14:25 Acuity: NAVDEEP 3 ap3 Triage Assessment: 14:27 General: Appears in no apparent distress. Behavior is calm, cooperative, appropriate ap3 for age. Pain: Complains of pain in gluteal cleft Pain currently is 6 out of 10 on a pain scale. Neuro: Level of Consciousness is awake, alert, obeys commands, Oriented to person, place, time, situation. Cardiovascular: Patient's skin is warm and dry. Respiratory: Airway is patent Respiratory effort is even, unlabored, Respiratory pattern is regular, symmetrical. GI: Reports rectal bleeding. 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 - Infectious Disease History:: Denies. - Social history:: Smoking status: Patient denies any tobacco usage or history of. Screenin:28 Abuse screen: Denies threats or abuse. Nutritional screening: No deficits noted. ap3 Tuberculosis screening: No symptoms or risk factors identified. 14:35 [facility] ED Fall Risk Assessment (Adult) History of falling in the last 3 months, jp5 including since admission No falls in past 3 months (0 pts) Confusion or Disorientation No (0 pts) Intoxicated or Sedated No (0 pts) Impaired Gait No (0 pts) Mobility Assist Device Used No (0 pt) Altered Elimination No (0 pt) Score/Fall Risk Level 0 - 2 = Low Risk Oriented to surroundings, Maintained a safe environment, Educated pt \T\ family on fall prevention, incl call for assistance when getting out of bed, Assessed \T\ reinforced patient's understanding of fall precautions, Provided non-skid footwear, Hourly rounding (assess needs \T\ fall precautionary measures) done, Used ambulatory aids as needed (educated on \T\ assisted with), Used gait belt as appropriate. Assessment: 15:15 General: Appears in no apparent distress. Behavior is calm, cooperative. ar8 15:15 Pain: Denies pain. Neuro: Level of Consciousness is awake, alert, obeys commands, ar8 Oriented to person, place, time, situation. Cardiovascular: Patient's skin is warm and dry. Respiratory: Airway is patent Respiratory effort is even, unlabored, Respiratory pattern is regular, symmetrical. GI: Reports rectal bleeding. : No signs and/or symptoms were reported regarding the genitourinary system. EENT: No signs and/or symptoms were reported regarding the EENT system. Vital Signs: 14:25 BP 129 / 75; Pulse 94; Resp 18; Pulse Ox 100% on R/A; Weight 83.91 kg; Height 5 ft. 6 ap3 in. ; Pain 6/10; 14:27 Temp 97.5; ap3 15:15 BP 126 / 88; Pulse 81; Resp 18; Pulse Ox 98% ; ar8 16:00 BP 116 / 75; Pulse 82; Resp 17; Pulse Ox 98% ; Pain 0/10; ar8 14:25 Body Mass Index 29.86 (83.91 kg, 167.64 cm) ap3 14:25 Pain Scale: Adult ap3 16:00 Pain Scale: Adult ar8 ED Course: 14:22 Patient arrived in ED. al6 14:24 Willy Marquez MD is Attending Physician. dilia 14:26 Triage completed. ap3 14:27 Arm band placed on right wrist. ap3 14:35 Patient has correct armband on for positive identification. Bed in low position. Call jp5 light in reach. Side rails up X 1. Provided Education on: call light use. 14:35 Initial lab(s) drawn, by me, sent to lab. Inserted saline lock: 20 gauge in right rk3 antecubital area, using aseptic technique. Blood collected. Flushed with 10 mL NS. 14:35 No provider procedures requiring assistance completed. jp5 14:47 Panchito Stinson, ROBERT is Primary Nurse. ar8 15:40 Abdomen In Process Unspecified. EDMS 16:11 Lois Boyle MD is Referral Physician. dilia 16:11 Roger Pratt MD is Referral Physician. dilia 16:32 IV discontinued, intact, bleeding controlled, No redness/swelling at site. Pressure jp5 dressing applied. Administered Medications: 15:14 Drug: Ondansetron IVP 4 mg IVP once; over 2 minutes Route: IVP; Site: left antecubital; jp5 16:00 Follow up: Response: No adverse reaction; Nausea is decreased ar8 15:14 Drug: NS 0.9% IV 1000 ml IV at 1 bolus Per protocol; to be given as a bolus over 60 jp5 minutes Route: IV; Rate: 1 bolus; Site: left antecubital; 16:25 Follow up: Response: No adverse reaction; IV Status: Completed infusion; IV Intake: ar8 1000ml 16:00 Drug: Rocephin IV 1 grams IV at per protocol once; Given slow IV push per pharmacy ar8 instructions Route: IV; Rate: per protocol; Site: right antecubital; 16:25 Follow up: Response: No adverse reaction; IV Status: Completed infusion; IV Intake: [id number] 16:00 Drug: Ciprofloxacin PO 500 mg PO once Route: PO; ar8 16:25 Follow up: Response: No adverse reaction ar8 Intake: 16:25 IV: 50ml; Total: 50ml. ar8 16:25 IV: 1000ml; Total: 1050ml. ar8 Outcome: 16:11 Discharge ordered by . dilia 16:32 Discharged to home ambulatory, jp5 16:32 Condition: stable 16:32 Discharge instructions given to patient, Instructed on discharge instructions, follow up and referral plans. medication usage, Demonstrated understanding of instructions, follow-up care, medications, Prescriptions given X 2, 16:38 Patient left the ED. ar8 Signatures: Dispatcher [employer] EDWilly Su MD MD cha Prokisch, Amanda, RN RN ap3 Shanna Dave RN RN [id number] Aracelis Lopez Rozana [id number] Panchito Stinson RN RN ar8
--- NOTE | 2025-02-25 16:12 | EDPHYS ---
Physician Documentation [facility] Name: Michelle Perez Age: 29 yrs Sex: Female : 1995 Arrival Date: 02/25/2025 Time: 14:19 Bed 8 Private MD: ED Physician Willy Marquez HPI: 02/25 15:28 This 29 yrs old Female presents to ER via Ambulatory with complaints of dilia Rectal Bleeding. 15:28 The patient presents to the emergency department with bleeding from the rectum/anus, dilia that is mild. Onset: The symptoms/episode began/occurred 3 week(s) ago. Context: the patient has no known special context relating to the rectal area complaint(s). 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 - Infectious Disease History:: Denies. - Social history:: Smoking status: Patient denies any tobacco usage or history of. ROS: 15:36 Constitutional: Negative for fever, chills, and weight loss, Eyes: Negative for injury, dilia pain, redness, and discharge, ENT: Negative for injury, pain, and discharge, Neck: Negative for injury, pain, and swelling, Cardiovascular: Negative for chest pain, palpitations, and edema, Respiratory: Negative for shortness of breath, cough, wheezing, and pleuritic chest pain, Back: Negative for injury and pain, : Negative for injury, bleeding, discharge, and swelling, MS/Extremity: Negative for injury and deformity, Skin: Negative for injury, rash, and discoloration, Neuro: Negative for headache, weakness, numbness, tingling, and seizure, Psych: Negative for depression, anxiety, suicide ideation, homicidal ideation, and hallucinations, Allergy/Immunology: Negative for hives, rash, and allergies, Endocrine: Negative for neck swelling, polydipsia, polyuria, polyphagia, and marked weight changes, Hematologic/Lymphatic: Negative for swollen nodes, abnormal bleeding, and unusual bruising, 15:36 Abdomen/GI: Positive for abdominal pain, rectal bleeding, Exam: 15:36 Constitutional: This is a well developed, well nourished patient who is awake, alert, dilia and in no acute distress. Head/Face: Normocephalic, atraumatic. Eyes: Pupils equal round and reactive to light, extra-ocular motions intact. Lids and lashes normal. Conjunctiva and sclera are non-icteric and not injected. Cornea within normal limits. Periorbital areas with no swelling, redness, or edema. ENT: Nares patent. No nasal discharge, no septal abnormalities noted. Tympanic membranes are normal and external auditory canals are clear. Oropharynx with no redness, swelling, or masses, exudates, or evidence of obstruction, uvula midline. Mucous membranes moist. Neck: Trachea midline, no thyromegaly or masses palpated, and no cervical lymphadenopathy. Supple, full range of motion without nuchal rigidity, or vertebral point tenderness. No Meningismus. Chest/axilla: Normal chest wall appearance and motion. Nontender with no deformity. No lesions are appreciated. Cardiovascular: Regular rate and rhythm with a normal S1 and S2. No gallops, murmurs, or rubs. Normal PMI, no JVD. No pulse deficits. Respiratory: Lungs have equal breath sounds bilaterally, clear to auscultation and percussion. No rales, rhonchi or wheezes noted. No increased work of breathing, no retractions or nasal flaring. Abdomen/GI: Soft, non-tender, with normal bowel sounds. No distension or tympany. No guarding or rebound. No evidence of tenderness throughout. Back: No spinal tenderness. No costovertebral tenderness. Full range of motion. Skin: Warm, dry with normal turgor. Normal color with no rashes, no lesions, and no evidence of cellulitis. MS/ Extremity: Pulses equal, no cyanosis. Neurovascular intact. Full, normal range of motion., bilateral aka Neuro: Awake and alert, GCS 15, oriented to person, place, time, and situation. Cranial nerves II-XII grossly intact. Motor strength 5/5 in all extremities. Sensory grossly intact. Cerebellar exam normal. Normal gait. Psych: Awake, alert, with orientation to person, place and time. Behavior, mood, and affect are within normal limits. Vital Signs: 14:25 BP 129 / 75; Pulse 94; Resp 18; Pulse Ox 100% on R/A; Weight 83.91 kg; Height 5 ft. 6 ap3 in. ; Pain 6/10; 14:27 Temp 97.5; ap3 15:15 BP 126 / 88; Pulse 81; Resp 18; Pulse Ox 98% ; ar8 16:00 BP 116 / 75; Pulse 82; Resp 17; Pulse Ox 98% ; Pain 0/10; ar8 14:25 Body Mass Index 29.86 (83.91 kg, 167.64 cm) ap3 14:25 Pain Scale: Adult ap3 16:00 Pain Scale: Adult ar8 MDM: 14:24 Medical Screening Exam initiated dilia 14:43 Medical Screening Exam initiated dilia 15:37 Differential diagnosis: hemorrhoids, fissure, abscess, condyloma. Data reviewed: vital dilia signs, nurses notes, lab test result(s), radiologic studies, CT scan. Consideration of Admission/Observation Escalation of care including admission/observation considered. I considered the following discharge prescriptions or medication management in the emergency department Medications were administered in the Emergency Department. See MAR. Independent interpretation of the following test(s) in the Emergency Department CT Scan: My interpretation is ct ab/ pel. Test considered but Not performed: Ultrasound no abd usg. Historians other than the Patient: pt well informed. Care significantly affected by the following chronic conditions: anxiety , depression. 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 02/25 14:25 Order name: CBC with Diff; Complete Time: 15:27 [facility] 02/25 14:25 Order name: CMP; Complete Time: 15:27 [facility] 02/25 14:25 Order name: Lipase; Complete Time: 15:27 [facility] 02/25 14:25 Order name: Test, Urine; Complete Time: 15:27 [facility] 02/25 14:25 Order name: UA Rfx James Cult if indicated; Complete Time: 15:27 dilia 02/25 15:40 Order name: Abdomen ; Complete Time: 16:13 EDMS 02/25 14:25 Order name: IV Saline Lock; Complete Time: 15:05 [facility] 02/25 14:25 Order name: Labs collected and sent; Complete Time: 15:05 dilia Administered Medications: 15:14 Drug: Ondansetron IVP 4 mg IVP once; over 2 minutes Route: IVP; Site: left antecubital; jp5 16:00 Follow up: Response: No adverse reaction; Nausea is decreased ar8 15:14 Drug: NS 0.9% IV 1000 ml IV at 1 bolus Per protocol; to be given as a bolus over 60 jp5 minutes Route: IV; Rate: 1 bolus; Site: left antecubital; 16:25 Follow up: Response: No adverse reaction; IV Status: Completed infusion; IV Intake: ar8 1000ml 16:00 Drug: Rocephin IV 1 grams IV at per protocol once; Given slow IV push per pharmacy ar8 instructions Route: IV; Rate: per protocol; Site: right antecubital; 16:25 Follow up: Response: No adverse reaction; IV Status: Completed infusion; IV Intake: [id number] 16:00 Drug: Ciprofloxacin PO 500 mg PO once Route: PO; ar8 16:25 Follow up: Response: No adverse reaction ar8 Disposition Summary: 02/25/25 16:11 Discharge Ordered Notes: Location: Home dilia Condition: Stable dilia Problem: new dilia Symptoms: have improved dilia Diagnosis - GI Bleed/ Gastrointestinal hemorrhage, unspecified - lower dilia - UTI/ Urinary tract infection, site not specified dilia Followup: dilia - With: Private Physician - When: 2 - 3 days - Reason: Recheck today's complaints, Continuance of care, Re-evaluation by your physician Followup: dilia - With: Lois Boyle MD - When: 2 - 3 days - Reason: Recheck today's complaints, Re-evaluation by your physician Followup: dilia - With: Roger Pratt MD - When: 2 - 3 days - Reason: Recheck today's complaints, Re-evaluation by your physician Discharge Instructions: - Discharge Summary Sheet dilia - Dysuria dilia - Gastrointestinal Bleeding dilia - How to Take a Sitz Bath dilia - Urinary Tract Infection, Adult dilia - Urinary Tract Infection, Adult, [id number] dilia - Lower Gastrointestinal Bleeding dilia Forms: - Medication Reconciliation Form dilia - Antibiotic Education dilia - Prescription Opioid Use dilia - Patient Portal Instructions dilia - Leadership Thank You Letter dilia Prescriptions: - Cipro 250 mg Oral tablet - take 1 tablet ORAL route every 12 hours; 15 tablet; Refills: 0, Product dilia Selection Permitted - Colace 100 mg Oral capsule - take 1 tablet ORAL route every 12 hours; 20 tablet; Refills: 0, Product dilia Selection Permitted Signatures: Dispatcher [employer] Willy King, Dali Hassan MD, cha, RN RN ap3 Shanna Dave, RN RN jp5 Panchito Stinson, RN RN ar8 Corrections: (The following items were deleted from the chart) 14:25 14:25 CBC+H.LAB.BRZ ordered. EDMS EDMS 14:25 14:25 COMPREHENSIVE METABOLIC PANEL+C.LAB.BRZ ordered. EDMS EDMS 14:25 14:25 LIPASE+C.LAB.BRZ ordered. EDMS EDMS 14:25 14:25 Test, Urine+UC.LAB.BRZ ordered. EDMS EDMS 14:25 14:25 UA Rfx James Cult if indicated+U.LAB.BRZ ordered. EDMS EDMS 14:25 14:25 Abdomen Pelvis W Con+CT.RAD.BRZ ordered. EDMS EDMS 15:39 15:02 Pelvis Angio ordered. EDMS EDMS 15:39 15:02 Abdomen Angio ordered. EDMS EDMS 15:40 15:03 Abdomen ordered. EDMS EDMS
[2025-02-25 18:53] VITALS: TEMP 97.5
[2025-02-25 18:54] VITALS: O2SAT 98
[2025-02-25 18:55] VITALS: BP 116/75
== END 2025-02-25 16:38 | disposition home or self-care (01) ==
LOC: ER 14:19
DX: K92.2 Gastrointestinal hemorrhage, unspecified (principal); N39.0 Urinary tract infection, site not specified
CPT/HCPCS: 36415; 74177; 80053; 81001; 81025; 83690; 85025; 96361; 96365; 96375; 99284; J0696; J2405; J7030; Q9967